=== PATIENT | male | born 1950 | race Caucasian/White ===

== ENCOUNTER 2023-03-05 12:41 | Emergency (ER) | payer MEDICARE, BC ==
[2023-03-05] MEDS ORDERED: Lidocaine 1% 10 ML MDV ONE (12:59)
[2023-03-05] MEDS ORDERED: Lidocaine 1% 10 ML MDV INJECT ONE (13:15)
[2023-03-05] MEDS ORDERED: Sodium Chloride 0.9% 10 ML Syringe FLUSH PRN (13:30)
[2023-03-05] MEDS ORDERED: ceFAZolin 1 GM in Sodium Chloride 0.9% 50 ML IV ONE (13:31)
[2023-03-05] MEDS ORDERED: Diphtheria,Pertussis(Acell),Tetanus Vaccine 0.5 ML Syringe IM ONE (14:01)
== END 2023-03-05 15:52 | disposition home or self-care (01) ==
LOC: JD.ED 12:41 → SUPCPDRO 12:41 → JD.ED 15:52
DX: S61.412A Laceration without foreign body of left hand, initial encounter (principal); I10 Essential (primary) hypertension; Z88.0 Allergy status to penicillin; W27.0XXA Contact with workbench tool, initial encounter
CPT/HCPCS: 12004; 73130; 90471; 90715; 96365; 99283; J0690; J3490; 99284

== ENCOUNTER 2023-03-08 10:37 | Emergency (ER) | payer MEDICARE, BC | END 2023-03-08 12:45 | disposition home or self-care (01) | LOC: JD.ED 10:37 | DX: S66.822D Laceration of other specified muscles, fascia and tendons at wrist and hand level, left hand, subsequent encounter (principal); I10 Essential (primary) hypertension; Z88.0 Allergy status to penicillin | CPT/HCPCS: 99282; 99283 ==

== ENCOUNTER 2023-03-11 09:31 | Emergency (ER) | payer MEDICARE, BC ==
[2023-03-11] MEDS ORDERED: Potassium Chloride 20 MEQ Tab.ER PO ONE ×2 (11:51→16:49)
[2023-03-11] MEDS ORDERED: Magnesium Oxide 400 MG Tab PO ONE (11:51)
[2023-03-11] MEDS ORDERED: Sodium Chloride 0.9% 1,000 ML IV ONE (15:11)
[2023-03-11] MEDS ORDERED: Sodium Chloride 1 GM Tab PO ONE (15:12)
== END 2023-03-11 17:23 | disposition home or self-care (01) ==
LOC: JD.ED 09:31
DX: E87.6 Hypokalemia (principal); E87.1 Hypo-osmolality and hyponatremia; E83.42 Hypomagnesemia; I10 Essential (primary) hypertension; M10.9 Gout, unspecified; Z88.0 Allergy status to penicillin; Z79.899 Other long term (current) drug therapy
CPT/HCPCS: 36415; 80053; 81003; 83735; 83930; 83935; 84300; 84443; 85025; 93005; 96360; 99285; A9270; J7030; 93010; 99284